=== PATIENT | male | born 1960 | race Two or more races ===

== ENCOUNTER 2024-06-15 21:46 | Emergency (ER) | payer MEDICAID, OTHER ==
[~2024-06-15] VITALS: Ht 167.6 cm; Wt 92.7 kg
[2024-06-15 22:34] VITALS: BP 160/107; PULSE 85; RESP 18; TEMP 97.8; O2SAT 97
[2024-06-15] MEDS ORDERED: ACET500T58 PO (23:09)
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
[2024-06-15] MEDS: ACETAMINOPHEN 325 MG TAB PO ONE (23:24)
--- NOTE | 2024-06-15 23:41 | DVH ---
XY R HIP COMPLETE XRAY, June 15, 2024 INDICATION: right hip pain TECHNICAL DATA: Frontal and frog lateral views were obtained of the right hip.] COMPARISON: None FINDINGS: Patient has a intramedullary kirk in the right femur no fractures of the proximal right femur apprecia akrla. There may be a fracture of the intramedullary kirk. IMPRESSION: 1. There is an apparent healed fracture involving the right femur. There is intramedullary kirk and th ere may be a fracture of the intramedullary kirk.
--- NOTE | 2024-06-15 23:51 | DVH ---
EXAM: XY LUMBAR SPINE 3 VIEW HISTORY: lumbar back pain COMPARISON: None TECHNIQUE: There is a 57 degree lordotic curvature of the lumbar spine disc disease at L5-S1 and probably L4-5. Vertebral body heights are well preserved and there is a small dextrocurvature involving the lumbar s pine of 2.7 degrees IMPRESSION: 1. Degenerative disc changes
--- NOTE | 2024-06-16 01:03 | DVH ---
INDICATION: RIGHT HIP PAIN COMPARISON: None TECHNIQUE: CT of the right right hip was performed without contrast. Volume transverse images were o btained and reconstructed in multiple planes using bone and soft tissue algorithms. Radiation Dose Information: CT Dose: CTDI volume is 20 mGy. Dose-length product is 874 mGy*cm FINDINGS: The alignment is normal. The joint spaces are normal. Surgical fixation hardware seen in the right proximal femur. No evidence of hardware complication There is no fracture, dislocation or aggressive osseous lesion. There is no joint effusion. The soft tissues are normal. IMPRESSION: 1. No acute fracture or dislocation. No acute findings identified 2. All CT scans at this medical facility are performed using dose modulation techniques as appropriat e to a performed exam including the following: Automated exposure control was utilized; adjustment of the MA and/or KV according to patient size; and use of iterative reconstruction technique.
== END 2024-06-16 01:11 | disposition home or self-care (01) ==
LOC: ER 21:46
DX: S39.012A Strain of muscle, fascia and tendon of lower back, initial encounter (principal); S70.01XA Contusion of right hip, initial encounter; Z88.0 Allergy status to penicillin; Z98.890 Other specified postprocedural states; V89.2XXA Person injured in unspecified motor-vehicle accident, traffic, initial encounter; Y93.I9 Activity, other involving external motion; Y92.488 Other paved roadways as the place of occurrence of the external cause; Y99.8 Other external cause status
CPT/HCPCS: 72100; 73502; 73700